=== PATIENT | female | born 1990 | race Caucasian/White ===

== ENCOUNTER → 2022-08-10 | Outpatient (CLI) | payer OTHER | LOC: M LABSMTC 09:19 | PROVIDERS: ATTEND Anesthesiology | DX: Z01.818 Encounter for other preprocedural examination (principal) ==

== ENCOUNTER 2022-08-15 11:03 | Day surgery (SDC) | payer OTHER ==
[~2022-08-15] VITALS: Ht 177.8 cm; Wt 80.8 kg
[2022-08-15] MEDS ORDERED: LR 1,000 ML IV SCH (11:25)
[2022-08-15] MEDS ORDERED: LIDOCAINE W/EPINEPHRINE 1% 20ML VIAL As Ordered ONE (12:50)
[2022-08-15] MEDS ORDERED: POLYSPORIN TOPICAL OINTMENT 15GM As Ordered ONE (14:03)
[2022-08-15 14:14] VITALS: BP 136/68
== END 2022-08-15 14:35 | disposition home or self-care (01) ==
LOC: M SDC 11:03
PROVIDERS: ATTEND Otolaryngology
DX: H70.812 Postauricular fistula, left ear (principal); F41.9 Anxiety disorder, unspecified; F32.A Depression, unspecified; G43.909 Migraine, unspecified, not intractable, without status migrainosus

== ENCOUNTER → 2023-01-14 | Outpatient (CLI) | payer OTHER | LOC: M RAD 10:33 | PROVIDERS: ATTEND Orthopaedic Surgery | DX: M25.562 Pain in left knee (principal); M25.462 Effusion, left knee; M71.22 Synovial cyst of popliteal space [Baker], left knee; M22.42 Chondromalacia patellae, left knee ==

== ENCOUNTER → 2023-02-16 | Outpatient (CLI) | payer OTHER | LOC: M SOG 10:06 | PROVIDERS: ATTEND Orthopaedic Surgery | DX: M25.562 Pain in left knee (principal); Z53.8 Procedure and treatment not carried out for other reasons ==

== ENCOUNTER → 2023-04-14 | Outpatient (CLI) | payer OTHER | LOC: M PLAIMG 06:33 | PROVIDERS: ATTEND Nurse Practitioner Family | DX: M51.16 Intervertebral disc disorders with radiculopathy, lumbar region (principal) ==